=== PATIENT | female | born 1950 | race Hispanic/Latino ===

== ENCOUNTER 2017-12-24 19:28 | Emergency (ER) | payer OTHER | END 2017-12-24 20:02 | disposition home or self-care (01) | LOC: EDH 19:28 | DX: S50.12XA Contusion of left forearm, initial encounter (principal); E78.5 Hyperlipidemia, unspecified; W18.39XA Other fall on same level, initial encounter; Y93.01 Activity, walking, marching and hiking; Y92.481 Parking lot as the place of occurrence of the external cause; Y99.8 Other external cause status | CPT/HCPCS: 73090 ==

== ENCOUNTER → 2018-02-26 | Outpatient (CLI) | payer OTHER | END | disposition home or self-care (01) | LOC: RAH 13:17 | PROVIDERS: ATTEND Family Medicine | DX: Z12.31 Encounter for screening mammogram for malignant neoplasm of breast (principal) | CPT/HCPCS: 77067 ==

== ENCOUNTER 2019-02-14 17:44 | Emergency (ER) | payer OTHER ==
[2019-02-14] MEDS ORDERED: ONDANSETRON ODT 4 MG TAB ONE (18:00)
[2019-02-14 18:15] LABS: BASOPHILS % (AUTO) 0.4 % (0.0-5.0); EOSINOPHILS % (AUTO) 0.3 % (0.0-8.0); HEMATOCRIT 44.3 % (36-48); LYMPHOCYTES % (AUTO) 10.5 % (21.0-51.0); MEAN CORPUSCULAR HEMOGLOBIN 29.3 pg (27.0-33.0); MEAN CORPUSCULAR HGB CONC 33.9 g/dL (32.0-36.0); MEAN CORPUSCULAR VOLUME 86.4 fL (79-99); MONOCYTES % (AUTO) 3.1 % (3.0-13.0); NEUTROPHILS % (AUTO) 85.7 % (40.0-77.0); PLATELET COUNT (AUTO) 230 K/uL (130-400); RED BLOOD CELL COUNT(AUTO) 5.12 MIL/uL (4.00-5.50); RED CELL DISTRIBUTION WIDTH 14.4 % (11.0-15.5); WHITE BLOOD COUNT (AUTO) 10.5 K/uL (4.8-10.8)
[2019-02-14] MEDS ORDERED: HYOSCYAMINE SULFATE 0.125 MG TAB.SUBL SL ONE (18:21)
[2019-02-14 18:22] LABS: POTASSIUM 4.5 mmol/L (3.5-5.1)
[2019-02-14 18:27] LABS: ALBUMIN 3.2 g/dL (3.5-5.0); BILIRUBIN,TOTAL 0.8 mg/dL (0.2-1.0); TOTAL PROTEIN, SERUM 7.5 g/dL (6.0-8.3)
== END 2019-02-14 19:33 | disposition home or self-care (01) ==
LOC: EDH 17:44
DX: R11.2 Nausea with vomiting, unspecified (principal); R19.7 Diarrhea, unspecified; R10.84 Generalized abdominal pain; R50.9 Fever, unspecified; E78.5 Hyperlipidemia, unspecified; Z90.49 Acquired absence of other specified parts of digestive tract; Z98.51 Tubal ligation status
CPT/HCPCS: 36415; 80053; 85025

== ENCOUNTER → 2020-08-29 | Outpatient (CLI) | payer OTHER | END | disposition home or self-care (01) | LOC: RAH 13:02 | PROVIDERS: ATTEND Family Medicine | DX: Z12.31 Encounter for screening mammogram for malignant neoplasm of breast (principal); N64.89 Other specified disorders of breast | CPT/HCPCS: 77067 ==

== ENCOUNTER 2021-08-22 10:54 | Emergency (ER) | payer OTHER ==
[~2021-08-22] VITALS: Ht 170.2 cm; Wt 74.8 kg
[2021-08-22 11:30] LABS: BASOPHILS % (AUTO) 0.4 % (0.0-5.0); EOSINOPHILS % (AUTO) 0.6 % (0.0-8.0); HEMATOCRIT 45.2 % (36-48); LYMPHOCYTES % (AUTO) 29.1 % (21.0-51.0); MEAN CORPUSCULAR HEMOGLOBIN 29.1 pg (27.0-33.0); MEAN CORPUSCULAR HGB CONC 32.7 g/dL (32.0-36.0); MONOCYTES % (AUTO) 5.6 % (3.0-13.0); PLATELET COUNT (AUTO) 242 K/uL (130-400); RED BLOOD CELL COUNT(AUTO) 5.08 MIL/uL (4.00-5.50); RED CELL DISTRIBUTION WIDTH 13.4 % (11.0-15.5); WHITE BLOOD COUNT (AUTO) 7.8 K/uL (4.8-10.8)
[2021-08-22 11:38] LABS: POTASSIUM 4.5 mmol/L (3.5-5.1)
[2021-08-22 11:42] LABS: ALBUMIN 3.5 g/dL (3.5-5.0); TOTAL PROTEIN, SERUM 7.9 g/dL (6.0-8.3)
[2021-08-22 11:52] LABS: APPEARANCE,URINE CLEAR (CLEAR); BILIRUBIN,URINE NEGATIVE (NEGATIVE); COLOR,URINE YELLOW (YELLOW); GLUCOSE, URINE (UA) NEGATIVE (NEGATIVE); KETONES,URINE NEGATIVE (NEGATIVE); LEUKOCYTE ESTERASE ,URINE LARGE (NEGATIVE); NITRATE,URINE NEGATIVE (NEGATIVE); OCCULT BLOOD,URINE LARGE (NEGATIVE); PROTEIN,URINE NEGATIVE (NEGATIVE); UROBILINOGEN,URINE 0.2 mg/dL (0.2-1.0)
[2021-08-22 12:00] LABS: BACTERIA,URINE Few /HPF (None Seen); RBC,URINE 0-1 /HPF (0-1); SQUAMOUS EPITHELIAL CELL,UR Few /HPF (0-2)
[2021-08-22] MEDS ORDERED: ACET-66 PO (14:37)
[2021-08-22 14:44] VITALS: BP 133/62
== END 2021-08-22 15:15 | disposition home or self-care (01) ==
LOC: EDH 10:54
DX: S00.83XA Contusion of other part of head, initial encounter (principal); W01.198A Fall on same level from slipping, tripping and stumbling with subsequent striking against other object, initial encounter; Y93.89 Activity, other specified; Y92.89 Other specified places as the place of occurrence of the external cause; Y99.8 Other external cause status
CPT/HCPCS: 36415; 70450; 70486; 71045; 72125; 80053; 81001; 85025; 87077; 87088; 87186

== ENCOUNTER 2021-09-10 11:27 | Emergency (ER) | payer OTHER ==
[~2021-09-10] VITALS: Ht 170.2 cm; Wt 74.8 kg
[~2021-09-10 11:27] MED LIST: ACET-66 PO
[2021-09-10 12:18] VITALS: BP 122/67
[2021-09-10 12:25] LABS: BASOPHILS % (AUTO) 0.6 % (0.0-5.0); EOSINOPHILS % (AUTO) 0.6 % (0.0-8.0); HEMATOCRIT 43.4 % (36-48); LYMPHOCYTES % (AUTO) 20.6 % (21.0-51.0); MEAN CORPUSCULAR HEMOGLOBIN 28.9 pg (27.0-33.0); MEAN CORPUSCULAR VOLUME 90.2 fL (79-99); NEUTROPHILS % (AUTO) 72.1 % (40.0-77.0); PLATELET COUNT (AUTO) 244 K/uL (130-400); RED BLOOD CELL COUNT(AUTO) 4.81 MIL/uL (4.00-5.50); RED CELL DISTRIBUTION WIDTH 13.4 % (11.0-15.5); WHITE BLOOD COUNT (AUTO) 7.1 K/uL (4.8-10.8)
[2021-09-10] MEDS ORDERED: LORAZEPAM 1 MG TABLET PO SCH (12:30)
[2021-09-10 12:41] LABS: APPEARANCE,URINE CLEAR (CLEAR); BILIRUBIN,URINE NEGATIVE (NEGATIVE); COLOR,URINE YELLOW (YELLOW); GLUCOSE, URINE (UA) NEGATIVE (NEGATIVE); KETONES,URINE NEGATIVE (NEGATIVE); LEUKOCYTE ESTERASE ,URINE TRACE (NEGATIVE); NITRATE,URINE POSITIVE (NEGATIVE); OCCULT BLOOD,URINE LARGE (NEGATIVE); PROTEIN,URINE NEGATIVE (NEGATIVE); UROBILINOGEN,URINE 0.2 mg/dL (0.2-1.0)
[2021-09-10 12:58] LABS: ALBUMIN 3.2 g/dL (3.5-5.0); BILIRUBIN,TOTAL 0.7 mg/dL (0.2-1.0); POTASSIUM 3.9 mmol/L (3.5-5.1); TOTAL PROTEIN, SERUM 7.3 g/dL (6.0-8.3)
[2021-09-10] MEDS ORDERED: ONDANSETRON ODT 4MG TAB SL ONE (13:00)
[2021-09-10] MEDS ORDERED: CEFTRIAXONE 1G VIAL IM ONE (13:00)
[2021-09-10 13:12] LABS: BACTERIA,URINE Moderate /HPF (None Seen)
[2021-09-10 13:13] LABS: WBC,URINE 0-1 /HPF (0-1)
[2021-09-10] MEDS ORDERED: ONDANSETRON ODT 4MG TAB ONE (13:14)
[2021-09-10] MEDS ORDERED: CEFTRIAXONE 1G VIAL ONE (13:14)
[2021-09-10] MEDS ORDERED: LIDOCAINE HCL-MPF 1% 2ML VIAL ONE (13:14)
[2021-09-10] MEDS ORDERED: HYDR-3421 PO (13:18)
[2021-09-10] MEDS ORDERED: CITA-106 PO (13:18)
[2021-09-10] MEDS ORDERED: CEPH500B PO (13:18)
[2021-09-10] MEDS ORDERED: ONDA4TAB10 PO (13:18)
== END 2021-09-10 13:53 | disposition home or self-care (01) ==
LOC: EDH 11:27
DX: N39.0 Urinary tract infection, site not specified (principal); F32.A Depression, unspecified; F41.8 Other specified anxiety disorders; Z79.899 Other long term (current) drug therapy
CPT/HCPCS: 36415; 80053; 81001; 85025; 87077; 87088; 87186; 96372; 99283; J0696; J3490

== ENCOUNTER 2024-04-10 12:01 | Emergency (ER) | payer OTHER ==
[~2024-04-10] VITALS: Ht 170.2 cm; Wt 70.3 kg
[~2024-04-10 12:01] MED LIST changes: +CEPH500B PO; +CITA-106 PO; +HYDR-3421 PO; +ONDA-243 PO
[2024-04-10 12:42] LABS: BASOPHILS # (AUTO) 0.03 K/uL (0.00-0.20); BASOPHILS % (AUTO) 0.4 % (0.0-5.0); EOSINOPHILS # (AUTO) 0.03 K/uL (0.00-0.70); EOSINOPHILS % (AUTO) 0.4 % (0.0-8.0); HEMATOCRIT 51.1 % (36-48); IMMATURE GRANULOCYTE ABSOLUTE 0.02 K/uL (0-1); LYMPHOCYTES # (AUTO) 2.3 K/uL (1.0-4.8); LYMPHOCYTES % (AUTO) 30.1 % (21.0-51.0); MEAN CORPUSCULAR HEMOGLOBIN 28.4 pg (27.0-33.0); MEAN CORPUSCULAR HGB CONC 32.7 g/dL (32.0-36.0); MEAN CORPUSCULAR VOLUME 87.1 fL (79-99); MONOCYTES # (AUTO) 0.5 K/uL (0.1-1.0); MONOCYTES % (AUTO) 6.5 % (3.0-13.0); NEUTROPHILS # (AUTO) 4.8 K/uL (1.8-7.7); NEUTROPHILS % (AUTO) 62.3 % (40.0-77.0); PLATELET COUNT (AUTO) 182 K/uL (130-400); RED BLOOD CELL COUNT(AUTO) 5.87 MIL/uL (4.00-5.50); RED CELL DISTRIBUTION WIDTH 13.7 % (11.0-15.5); WHITE BLOOD COUNT (AUTO) 7.7 K/uL (4.8-10.8)
[2024-04-10 12:52] LABS: APPEARANCE,URINE CLOUDY (CLEAR); BILIRUBIN,URINE NEGATIVE (NEGATIVE); COLOR,URINE YELLOW (YELLOW); GLUCOSE, URINE (UA) NEGATIVE (NEGATIVE); KETONES,URINE 10 mg/dL (NEGATIVE); LEUKOCYTE ESTERASE ,URINE 500 Leu/uL (NEGATIVE); NITRATE,URINE 2+ (NEGATIVE); OCCULT BLOOD,URINE LARGE (NEGATIVE); PH,URINE 5.5 (5.0-8.0); PROTEIN,URINE 30 mg/dL (NEGATIVE); UROBILINOGEN,URINE 3 mg/dL (0.2-1.0)
[2024-04-10 12:54] LABS: ADD UA MICROSCOPIC YES
[2024-04-10 12:57] LABS: CARBON DIOXIDE 27 mmol/L (21-32); CHLORIDE 103 mmol/L (101-111); CREATININE 1.1 mg/dL (0.5-1.0); GLOMERULAR FILTR. RATE CALC 52 mL/min (>90); GLUCOSE,RANDOM 111 mg/dL (70-105); POTASSIUM 3.4 mmol/L (3.5-5.1); SODIUM SERUM 141 mmol/L (136-145); UREA NITROGEN, BLOOD 18 mg/dL (7-18)
[2024-04-10 12:59] LABS: AMPHET/METH SCREEN,URINE NEGATIVE (NEGATIVE); BARBITURATE SCREEN, URINE NEGATIVE (NEGATIVE); BENZODIAZEPINES SCREEN,URINE NEGATIVE (NEGATIVE); CANNABINOID SCREEN,URINE NEGATIVE (NEGATIVE); COCAINE SCREEN,URINE NEGATIVE (NEGATIVE); OPIATE SCREEN,URINE NEGATIVE (NEGATIVE); PHENCYCLIDINE SCREEN,URINE NEGATIVE (NEGATIVE)
[2024-04-10 13:02] LABS: ALANINE AMINOTRANSFERASE 31 U/L (12-78); ALBUMIN 3.7 g/dL (3.5-5.0); ALCOHOL, BLOOD < 3 mg/dL (0-10); ASPARTATE AMINOTRANSFERASE 31 U/L (10-37); BILIRUBIN,TOTAL 1.7 mg/dL (0.2-1.0); CREATINE KINASE, TOTAL 53 U/L (21-232); TOTAL PROTEIN, SERUM 8.6 g/dL (6.0-8.3)
[2024-04-10 13:06] LABS: BACTERIA,URINE MANY /HPF (None Seen); MUCUS,URINE FEW LPF (None Seen); SQUAMOUS EPITHELIAL CELL,UR MANY /HPF (0-2); WBC,URINE 51-100 /HPF (0-1)
[2024-04-10 13:10] LABS: ACETAMINOPHEN < 1 mcg/mL (10-30); SALICYLATE < 2.8 mg/dL (2.8-20.0)
[2024-04-10] MEDS: AMOX/CLAV 875/125MG TAB PO ONE (13:34)
[2024-04-10] MEDS ORDERED: AMOX1TAB16 PO (14:39)
[2024-04-10 15:10] VITALS: BP 132/78; PULSE 78; RESP 18; O2SAT 98
== END 2024-04-10 15:25 | disposition home or self-care (01) ==
LOC: EDH 12:01
DX: F32.A Depression, unspecified (principal); N30.01 Acute cystitis with hematuria; Z79.899 Other long term (current) drug therapy; Z90.49 Acquired absence of other specified parts of digestive tract; Z98.51 Tubal ligation status; Z98.890 Other specified postprocedural states
CPT/HCPCS: 99284; 82550; 80053; 80305; 85025; 87086 ×2; 87186; 81001; 36415; 93005; G0481